=== PATIENT | male | born 1995 | race American Indian/Alaskan Native ===

== ENCOUNTER 2018-01-11 03:08 | Emergency (ER) | payer SELFPAY ==
[2018-01-11 03:32] VITALS: BP 127/82
[2018-01-11] MEDS ORDERED: TORADOL IM ONE (04:20)
--- NOTE | 2018-01-11 05:14 | Emergency Department Report ---
ED ENT HPI - General Chief complaint: Sore Throat Stated complaint: SORE THROAT Time Seen by Provider: 01/11/18 05:13 Source: patient Mode of arrival: Stretcher Limitations: No Limitations - History of Present Illness Initial comments: 22year-old -[place] male presents to the emergency room for sore throat times one day, right jaw pain and swelling. Right jaw pain 5 days swelling 1 day. Patient reports no past medical history currently takes no medications on a daily basis and has no known drug allergies. MD complaint: tooth pain, sore throat -: days(s) (1) Location: throat, tooth # (16) Severity: severe Severity scale (0 -10): 10 Quality: aching, sharp Consistency: constant Improves with: none Worsens with: swallowing Associated Symptoms: toothache (16), sore throat - Related Data Previous Rx's Medication Instructions Recorded Last Taken Type Amoxicillin [Amoxicillin TAB] 875 mg PO BID #20 tablet 01/11/18 Unknown Rx Ibuprofen [Motrin 800 MG tab] 800 mg PO Q8HR PRN #30 tablet 01/11/18 Unknown Rx Allergies Allergy/AdvReac Type Severity Reaction Status Date / Time egg Allergy Hives Verified 01/11/18 04:18 milk Allergy Itching Verified 01/11/18 04:20 ED Dental HPI - General Chief complaint: Sore Throat Stated complaint: SORE THROAT Time Seen by Provider: 01/11/18 05:13 Source: patient Mode of arrival: Stretcher Limitations: No Limitations - Related Data Previous Rx's Medication Instructions Recorded Last Taken Type Amoxicillin [Amoxicillin TAB] 875 mg PO BID #20 tablet 01/11/18 Unknown Rx Ibuprofen [Motrin 800 MG tab] 800 mg PO Q8HR PRN #30 tablet 01/11/18 Unknown Rx Allergies Allergy/AdvReac Type Severity Reaction Status Date / Time egg Allergy Hives Verified 01/11/18 04:18 milk Allergy Itching Verified 01/11/18 04:20 ED Review of Systems ROS: Stated complaint: SORE THROAT Other details as noted in HPI ENT: throat pain, dental pain ED Past Medical Hx - Past Medical History Previous Medical History?: No - Surgical History Past Surgical History?: No - Social History Smoking Status: Current Every Day Smoker Substance Use Type: Marijuana - Medications Home Medications: Home Medications Medication Instructions Recorded Confirmed Last Taken Type Amoxicillin [Amoxicillin TAB] 875 mg PO BID #20 tablet 01/11/18 Unknown Rx Ibuprofen [Motrin 800 MG tab] 800 mg PO Q8HR PRN #30 tablet 01/11/18 Unknown Rx ED Physical Exam - General Limitations: No Limitations General appearance: alert, in no apparent distress - Head Head exam: Present: atraumatic, normocephalic - Eye Eye exam: Present: EOMI - ENT ENT exam: Present: mucous membranes moist - Expanded ENT Exam Expanded Teeth exam: Present: dental tenderness # (16), gingival enlargement Throat exam: Positive: tonsillar erythema - Neck Neck exam: Present: tenderness, full ROM. Absent: lymphadenopathy - Respiratory Respiratory exam: Present: normal lung sounds bilaterally. Absent: respiratory distress - Cardiovascular Cardiovascular Exam: Present: regular rate, normal rhythm. Absent: systolic murmur, diastolic murmur, rubs, gallop - Neurological Exam Neurological exam: Present: alert, oriented X3 - Psychiatric Psychiatric exam: Present: normal affect, normal mood - Skin Skin exam: Present: warm, dry, intact, normal color. Absent: rash ED Course Vital Signs 01/11/18 03:17 Temperature 99.1 F Pulse Rate 58 L Respiratory 18 Rate Blood Pressure 127/82 O2 Sat by Pulse 99 Oximetry ED Medical Decision Making - Lab Data Laboratory Results - last 24 hr 01/11/18 04:00 Group A Strep Rapid Negative - Medical Decision Making Patient has been evaluated by this provider fast track. Toradol given in triage for pain management A rapid strep completed which is negative Visocus lidocaine Tylenol 3 liquid has been ordered Patiently discharged home on amoxicillin 875 mg twice a day for 10 days. Protuberant abscess and ibuprofen 800 mg every 8 hours when necessary pain. Critical care attestation.: If time is entered above; I have spent that time in minutes in the direct care of this critically ill patient, excluding procedure time. ED Disposition Clinical Impression: Sore throat (viral), Tooth abscess Disposition: TO HOME OR SELFCARE Is pt being admited?: No Does the pt Need Aspirin: No Condition: Stable Instructions: Pharyngitis (ED), Dental Abscess (ED) Additional Instructions: Please complete antibiotics as prescribed take pain medication as needed if symptoms persist or gets worse please follow-up with her primary care provider. I recommend following up with a dentist to have her teeth evaluated for repair. Prescriptions: Amoxicillin [Amoxicillin TAB] 875 mg PO BID #20 tablet Ibuprofen [Motrin 800 MG tab] 800 mg PO Q8HR PRN #30 tablet PRN Reason: Pain , Severe (7-10) Referrals: PRIMARY CARE, [Primary Care Provider] - 3-5 Days [facility] [Outside] - 3-5 Days [facility] [Outside] - 3-5 Days [facility] [Outside] - 3-5 Days [facility] [Provider Group] - 3-5 Days Forms: Work/School Release Form(ED)
[2018-01-11] MEDS ORDERED: TYLENOL/CODEINE PO ONE (05:30)
[2018-01-11] MEDS ORDERED: LIDOCAINE VISCOUS 2% PO ONE (05:30)
== END 2018-01-11 05:52 | disposition home or self-care (01) ==
LOC: ED 03:08
DX: J02.8 Acute pharyngitis due to other specified organisms (principal); K08.89 Other specified disorders of teeth and supporting structures; F17.200 Nicotine dependence, unspecified, uncomplicated; F12.10 Cannabis abuse, uncomplicated; Z91.012 Allergy to eggs; Z91.011 Allergy to milk products
CPT/HCPCS: 87116; 87430; 96372; 99283; J1885